=== PATIENT | female | born 1995 | race Caucasian/White ===

== ENCOUNTER → 2020-05-21 09:24 | Outpatient (CLI) | payer OTHER, SELFPAY | PROVIDERS: Visit Provider Physician Assistant | DX: R30.0 Dysuria (principal) | CPT/HCPCS: 87077; 87086; 87186 ==

== ENCOUNTER → 2024-06-13 07:31 | Outpatient (CLI) | payer OTHER, SELFPAY | PROVIDERS: Visit Provider Physician Assistant Medical | DX: J02.9 Acute pharyngitis, unspecified (principal) | CPT/HCPCS: 87070 ==

== ENCOUNTER → 2025-02-13 09:06 | Outpatient (CLI) | payer OTHER, SELFPAY | LOC: LAB 09:11 | PROVIDERS: Visit Provider Chiropractor | DX: J02.9 Acute pharyngitis, unspecified (principal) | CPT/HCPCS: 87070 ==

== ENCOUNTER 2025-04-02 14:08 | Emergency (ER) | payer BC, SELFPAY ==
[2025-04-02] VITALS (10 sets, daily range): BP systolic 102–140; BP diastolic 57–91; PULSE 60–80; RESP 16; TEMP 36.9; O2SAT 98–100; BMI 22.3
--- NOTE | 2025-04-02 14:35 | DI.CT.S_ITS ---
PROCEDURE: CT HEAD/BRAIN WO CON INDICATIONS: sudden headache TECHNIQUE: Noncontrast 4.5 mm thick angled axial sections acquired from the foramen magnum to the vertex, with coronal and sagittal reformats. For radiation dose reduction, the following was used: automated exposure control, adjustment of mA and/or kV according to patient size. COMPARISON: None. FINDINGS: Image quality: Diagnostic. CSF spaces: Basal cisterns are patent. No extra-axial fluid collections. Ventricles are normal in size and shape. Brain: No midline shift. No intracranial mass effect or hemorrhage. [place]- white matter interface is normal. Skull and face: Calvarium and visualized facial bones are intact, without suspicious lesions. Sinuses: Visualized sinuses and mastoids are clear. IMPRESSION: No acute intracranial pathology. Dictated by: Jae Perry M.D. on 04/02/2025 at 15:40 Approved by: Jae Perry M.D. on 04/02/2025 at 15:41
[2025-04-02 16:00] LABS: Add Manual Diff / Slide Review NO; Hematocrit 37.5 % (36-46); Hemoglobin 12.9 g/dL (12.0-16.0); Lymphocytes Absolute Auto 2500 /uL (1100-4500); Mean Corpuscular HGB Conc 34.4 % (30-36); Mean Corpuscular Hemoglobin 30.4 PG (26-34); Mean Corpuscular Volume 88.5 fL (80-100); Platelet Count 245 X10^3/uL (150-400)
[2025-04-02 16:08] LABS: Alanine Aminotransferase 22 IU/L (<35); Albumin 4.7 g/dL (3.5-5.0); Albumin Globulin Ratio 1.5 (1.0-2.8); Alkaline Phosphatase 71 U/L (38-126); Blood Urea Nitrogen 17 mg/dL (7-17); Calcium 9.3 mg/dL (8.4-10.2); Carbon Dioxide 24 mmol/L (22-32); Chloride 101 mmol/L (98-107); Estimated Glomerular Filt Rate > 60 mL/min (>60); Globulin 3.2 g/dL (1.7-4.1); Glucose 98 mg/dL (70-99); HEMOLYSIS < 15 (0-50); Potassium 3.5 mmol/L (3.4-5.1); Sodium 135 mmol/L (137-145); Total Protein 7.9 g/dL (6.3-8.2)
[2025-04-02] MEDS: ONDANSETRON 4 MG/2 ML INJ IV (18:37)
--- NOTE | 2025-04-02 19:47 | DI.CT.S_ITS ---
PROCEDURE: CT ANGIO HEAD AND NECK INDICATIONS: head/neck pain, prior dissection neck TECHNIQUE: After the administration of intravenous contrast, 1 mm thick sections acquired from the aortic arch through the [place] of [place]. 3-dimensional mhpglqj-gbollcznn-echitqzcpr (MIP) and/or volume rendering reformats were acquired of the central intracranial vasculature and neck separately. For radiation dose reduction, the following was used: automated exposure control, adjustment of mA and/or kV according to patient size. COMPARISON: [facility], CT, CT HEAD/BRAIN WO [facility], 04/02/2025, 15:25. FINDINGS: Image quality: Diagnostic. Cerebral CT Angiogram: Internal carotid arteries: No acute findings. Intracranial ICA are patent with no significant stenosis. No occlusion. No aneurysm. Anterior cerebral arteries: Unremarkable. No significant stenosis. No occlusion. No aneurysm. Middle cerebral arteries: Unremarkable. No significant stenosis. No occlusion. No aneurysm. Posterior cerebral arteries: Unremarkable. No significant stenosis. No occlusion. No aneurysm. Basilar artery: Unremarkable. No significant stenosis. No occlusion. No aneurysm. Vertebral arteries: Unremarkable as visualized. Dural venous sinuses: Unremarkable given phase of enhancement. Other: Arterial phase appearance of the brain parenchyma is unremarkable. Neck CT Angiogram: Internal carotid arteries: Unremarkable. No significant stenosis. No dissection or occlusion. Common carotid arteries: Unremarkable. No significant stenosis. No dissection or occlusion. External carotid arteries: Unremarkable. No occlusion. Vertebral arteries: Unremarkable. No significant stenosis. No dissection or occlusion. Aortic Arch and Mediastinum: Partially visualized aortic arch unremarkable without evidence of aneurysm. Origins of the great vessels unremarkable. Other: Arterial phase soft tissues of the neck and chest are unremarkable. IMPRESSION: No significant intracranial arterial abnormality is seen. No significant abnormality is seen within the arteries of the neck. Any quantitative measurements of stenosis were performed using NASCET criteria. Dictated by: Colette Ng M.D. on 04/02/2025 at 20:41 Approved by: Colette Ng M.D. on 04/02/2025 at 20:42
--- NOTE | 2025-04-02 19:47 | ED.HA ---
HPI - Headache General Chief Complaint: Headache Stated Complaint: headache, blurred vision, neck pain, elevated Hr Time Seen by Provider: 04/02/25 19:30 Mode of arrival: Ambulatory History of Present Illness HPI Narrative: 29-year-old female with history of chronic headaches since childhood most recently followed by [facility] neurologist Dr. 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 No focal weakness to face arm or leg. No focal numbness to face arm or leg. Nausea and vomiting nonbloody. No problems with speech. No injury trauma new activities. No fevers or chills sore throat cough. Denies shortness of breath chest pain. Related Data Home Medications ?Medication ?Instructions ?Recorded ?Confirmed tretinoin 0.025 % topical cream applic topical DAILY 06/13/24 02/13/25 Allergies Allergy/AdvReac Type Severity Reaction Status Date / Time No Known Drug Allergies Allergy Verified 02/13/25 09:05 Patient History Social History Smoking Status: Never smoker Smoking Status: Never smoker Exam Narrative Exam Narrative: GENERAL: Well-developed patient, in mild distress. HEAD: Atraumatic. Normocephalic. EYES: Pupils equal round and reactive. Extraocular motions intact. No scleral icterus. No injection or drainage. ENT: Nose without bleeding, purulent drainage. Throat without erythema, tonsillar hypertrophy or exudate. Airway patent. NECK: Trachea midline. Non tender, moves neck well [id number] without obvious discomfort. CARDIOVASCULAR: Regular rate and rhythm without murmurs, gallops, or rubs. RESPIRATORY: Clear to auscultation. Breath sounds equal bilaterally. No wheezes, rales, or rhonchi. GASTROINTESTINAL: Abdomen soft, non-tender, nondistended. EXTREMITIES: No edema or joint tenderness. BACK: Nontender without deformity or crepitance. No flank tenderness. NEURO: AOx3. Cranial nerves normal. Motor 5/5 upper and lower extremities. SKIN: No rash or erythema of visible areas Initial Vital Signs Initial Vital Signs: Vital Signs Temperature 98.4 F 04/02/25 14:11 Pulse Rate 74 04/02/25 14:11 Respiratory Rate 16 04/02/25 14:11 Blood Pressure 140/91 H 04/02/25 14:11 Pulse Oximetry 100 04/02/25 14:11 Oxygen Delivery Method Room Air 04/02/25 14:11 Course Orders Ordered: ED Orders 04/02/25 19:47 CT angio head and neck Stat Discontinued Medications Dexamethasone (Dexamethasone 10 Mg/Ml Vial) 10 mg IV NOW ONE Stop: 04/02/25 19:50 Last Admin: 04/02/25 20:13 Dose: 10 mg Documented By: CRISTIN Diphenhydramine HCl (Diphenhydramine 50 Mg/Ml Vial) 50 mg IV NOW ONE Stop: 04/02/25 19:50 Last Admin: 04/02/25 20:13 Dose: 50 mg Documented By: CRISTIN Sodium Chloride (Normal Saline 0.9%) 1,000 mls @ 1,000 mls/hr IV BOLUS ONE Stop: 04/02/25 20:48 Last Infusion: 04/02/25 21:20 Dose: Infused Documented By: Admin: 04/02/25 20:18 Dose: 1,000 mls/hr Documented By: CRISTIN Ketorolac Tromethamine (Ketorolac 30 Mg/Ml Vial) 15 mg IV NOW ONE Stop: 04/02/25 21:34 Last Admin: 04/02/25 21:38 Dose: 15 mg Documented By: SAMIR Ondansetron HCl (Ondansetron 4 Mg/2 Ml Inj) 4 mg IV NOW ONE Stop: 04/02/25 18:26 Last Admin: 04/02/25 18:37 Dose: 4 mg Documented By: PAUL Prochlorperazine (Prochlorperazine 10 Mg/2 Ml Vial) 10 mg IV NOW ONE Stop: 04/02/25 19:50 Last Admin: 04/02/25 20:14 Dose: 10 mg Documented By: CRISTIN Vital Signs Vital signs: Vital Signs - 8 hr 04/02/25 20:14 04/02/25 20:32 04/02/25 20:57 Pulse Rate 60 80 Respiratory Rate 16 Blood Pressure 128/79 128/63 Pulse Oximetry 100 04/02/25 20:57 04/02/25 21:00 04/02/25 21:00 Pulse Rate 67 Respiratory Rate Blood Pressure 107/57 L Pulse Oximetry 100 100 04/02/25 21:30 04/02/25 21:30 04/02/25 21:44 Pulse Rate 61 69 Respiratory Rate 16 Blood Pressure 102/58 L Pulse Oximetry 99 98 04/02/25 21:44 04/02/25 22:00 04/02/25 22:00 Pulse Rate Respiratory Rate 16 Blood Pressure 107/62 107/62 Pulse Oximetry 98 04/02/25 22:30 04/02/25 22:30 Pulse Rate 62 Respiratory Rate Blood Pressure 103/63 Pulse Oximetry 98 MDM - Headache Lab Data Attestation: I reviewed the patient's lab results. Lab results narrative: White blood cell count 7100, hemoglobin 12.9, platelets adequate. Glucose 98. Renal function normal. Serum CO2 24. Potassium 3.5, sodium 135. Liver functions normal. Urine test negative. 04/02/25 14:25 04/02/25 14:25 Labs: Lab Results 04/02/25 Range/Units 14:25 WBC 7.1 (4.5-11.0) X10^3/uL RBC 4.24 (4.0-5.2) X10^6/uL Hgb 12.9 (12.0-16.0) g/dL Hct 37.5 (36-46) % MCV 88.5 (80-100) fL MCH 30.4 (26-34) PG MCHC 34.4 (30-36) % RDW 13.2 (11.6-14.8) % Plt Count 245 (150-400) X10^3/uL Neut % (Auto) 56.2 (50-75) % Lymph % (Auto) 35.4 (25-40) % [place] % (Auto) 5.9 (3-14) % Eos % (Auto) 2.0 (2-4) % Baso % (Auto) 0.5 (0-2) % Neut # (Auto) 4000 (4669-2256) /uL Lymph # (Auto) 2500 (0652-5045) /uL [place] # (Auto) 400 (0-900) /uL Eos # (Auto) 100 (0-450) /uL Baso # (Auto) 0 (0-100) /uL Sodium 135 L (137-145) mmol/L Potassium 3.5 (3.4-5.1) mmol/L Chloride 101 (98-107) mmol/L Carbon Dioxide 24 (22-32) mmol/L BUN 17 (7-17) mg/dL Creatinine 0.71 (0.52-1.04) mg/dL Estimated GFR > 60 (>60) mL/min BUN/Creatinine Ratio 23.9 H (6-22) Glucose 98 (70-99) mg/dL Calcium 9.3 (8.4-10.2) mg/dL Total Bilirubin 0.3 (0.2-1.3) mg/dL AST 25 (14-36) IU/L ALT 22 (<35) IU/L Alkaline Phosphatase 71 (38-126) U/L Total Protein 7.9 (6.3-8.2) g/dL Albumin 4.7 (3.5-5.0) g/dL Globulin 3.2 (1.7-4.1) g/dL Albumin/Globulin Ratio 1.5 (1.0-2.8) Point of Care Testing Test Results Negative Imaging Data CT scan - head: Radiologist's Impression: [place] [address] CT Scan Report Signed Patient: Alexia Orozco MR#: [id number] : 1995 Acct:[id number] Age/Sex: 29 / F Date of Service: 04/02/25 Loc: ED Accession Number: [id number] Procedure: CT head/brain wo con Ordering Provider: Jim Marcial MD PROCEDURE: CT HEAD/BRAIN WO CON INDICATIONS: sudden headache TECHNIQUE: Noncontrast 4.5 mm thick angled axial sections acquired from the foramen magnum to the vertex, with coronal and sagittal reformats. For radiation dose reduction, the following was used: automated exposure control, adjustment of mA and/or kV according to patient size. COMPARISON: None. FINDINGS: Image quality: Diagnostic. CSF spaces: Basal cisterns are patent. No extra-axial fluid collections. Ventricles are normal in size and shape. Brain: No midline shift. No intracranial mass effect or hemorrhage. [place]-white matter interface is normal. Skull and face: Calvarium and visualized facial bones are intact, without suspicious lesions. Sinuses: Visualized sinuses and mastoids are clear. IMPRESSION: No acute intracranial pathology. Dictated by: Jae Perry M.D. on 04/02/2025 at 15:40 Approved by: Jae Perry M.D. 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 No focal neuro symptoms or findings. Headache cocktail initiated, IV fluid bolus saline, IV Compazine/Benadryl, IV Decadron. We will hold Toradol pending imaging results. CT head noncontrast study ordered from triage. CT head noncontrast, no acute changes. See radiology report. Lab data: White blood cell count 7100, hemoglobin 12.9, platelets adequate. Glucose 98. Renal function normal. Serum CO2 24. Potassium 3.5, sodium 135. Liver functions normal. Urine test negative. GFR/creatinine favorable, CT angiogram head and neck vessels ordered, patient we would like evaluation of her neck vessels. Keep NPO. 1945, headache symptoms improving on IV therapies, fluids still infusing, some dry mouth from Benadryl. CTA results still pending. CT angiogram head and neck vessels, no dissection or other acute changes, no thromboses. See radiology report. We will add IV Toradol. Pain symptoms continue to improve. Further improved, able to ambulate well, feels better, wants to go home. Follow up advised with her neurologist as scheduled. Return precautions discussed. Stable/improved. Discharged home Discharge Plan Departure Patient Disposition: Home Clinical Impression: Headache, Chronic neck pain Activity Restrictions/Additional Instructions: History of recurrent headaches, chronic neck pain, remote but prior carotid artery dissection after chiropractic procedure, now with persisting and increasing headache pain, persistent chronic neck pain. IV Compazine, Toradol, fluids, Decadron given. Significant improvement in symptoms. CT head noncontrast study negative. CT angiography head and neck vessels showed no carotid dissection present at this time, no acute changes. Symptoms improved further. Discharged home. Follow up with your neurologist as planned. Recheck symptoms with your regular doctor later this week. Return to this/nearest emergency department for any change worsening symptoms or any concerns prior. Prescriptions: No Action tretinoin 0.025 % cream topical DAILY Referrals: Miscellaneous,Doctor, MD [Primary Care Provider, Medical] Stand Alone Forms: Patient Portal/API
[2025-04-02] MEDS: diphenhydrAMINE 50 MG/ML VIAL IV (20:13)
[2025-04-02] MEDS: DEXAMETHASONE 10 MG/ML VIAL IV (20:13)
[2025-04-02] MEDS: PROCHLORPERAZINE 10 MG/2 ML VIAL IV (20:14)
[2025-04-02] MEDS: SODIUM CHLORIDE 0.9% 1,000 ML 1000 ML IV (20:18)
[2025-04-02] MEDS: KETOROLAC 30 MG/ML VIAL 15 MG IV (21:38)
--- NOTE | 2025-04-02 22:25 | PC.NURSE ---
pt ambulates to/from bathroom no issue, steady gait
== END 2025-04-02 22:44 | disposition home or self-care (01) ==
PROVIDERS: Family Medicine; Emergency Provider Emergency Medicine
DX: R51.9 Headache, unspecified (principal); M54.2 Cervicalgia; G89.29 Other chronic pain
CPT/HCPCS: 36415; 70450; 70496; 70498; 80053; 81025; 85025; 96361; 96374; 96375; 99284; J0780; J1100; J1200; J1885; J2405; Q9967